=== PATIENT | female | born 1960 | race Caucasian/White ===

== ENCOUNTER 2018-05-21 08:56 | Observation (INO) | payer BC ==
[2018-05-21 09:29] LABS: ABS Basophils 0 10^3/ul (0-0.2); ABS Eosinophils 0.1 10^3/ul (0-0.6); ABS Lymphocytes 0.7 10^3/ul (1.0-4.8); ABS Monocytes 0.9 10^3/ul (0-0.8); ABS Neutrophils 16.2 10^3/ul (1.5-7.7); ABS Nucleated RBC 0 10^3/ul; Eosinophil % 0.3 % (0-6); Hematocrit 51 % (35-47); Hemoglobin 17.1 g/dl (12.0-16.0); Lymphocyte % 4.1 % (25-47); Mean Corpuscular HGB Conc 34 g/dl (31-36); Mean Corpuscular Hemoglobin 30 pg (27-31); Mean Corpuscular Volume 89 fL (80-97); Mean Platelet Volume 8.6 um3 (7.4-10.4); Nucleated Red Blood Cells % 0; Platelet Count 271 10^3/ul (150-450); Red Blood Count 5.73 10^6/ul (4.00-5.40); Red Cell Distribution Width 14 % (10.5-15); White Blood Count 17.9 10^3/ul (3.5-10.8)
[2018-05-21] MEDS ORDERED: NS 0.9% 1000 ML* 1,000 ML IV ONE ×3 (09:37→14:35)
--- OUTSIDE RECORDS SUMMARY | 2018-05-21 09:38 | XMS REPORT ---
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 Venkat Lala MD Primary Care Physician Unavailable Payers Type Date Identification Numbers Payment Provider Subscriber Commercial Effective: Policy Number: BC/BS Of MARY Ernesto Stokes 2017 [id number] Group Number: [id number] [address] [id number] PayID: [id number] [place] [address] Problems Description No Information Family History Date Family Member(s) Problem(s) Comments : (age 70 Years) Father due to Heart Disease Mother Diabetes Mellitus, II Mother Congestive Heart Failure (CHF) First Brother 58 First Brother Cirrhosis First Brother Hypertension First Sister 60 First Sister No Current Problems Second Sister 51 Second Sister Hypertension Social History Type Date Description Comments Marital Status . 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[employer] [place] Smoking Nonsmoker Allergies, Adverse Reactions, Alerts Date Description Reaction Status Severity Comments 05/09/2018 Sulfa hives active Medications Medication Date Status Form Strength Qnty SIG Indications Ordering Provider Lisinopril 05/09/ Active Tablets 40mg 30tabs 1 by I10 Venkat Cervantes 2018 mouth Dai dorsey MD day Metoprolol Tartrate / Active Tablets 100mg 1 by Unknown 0000 mouth twice a day Hydrochlorothiazide / Active Tablets 25mg 1 by Unknown 0000 mouth every day Vital Signs Date Vital Result Comment 05/09/2018 BP Systolic 130 mmHg BP Diastolic 88 mmHg Heart Rate 76 /min Body Temperature 98.3 F Respiratory Rate 16 /min Height 64.5 inches 5'4.50" Weight 172.00 lb BMI (Body Mass Index) 29.1 kg/m2 Results Description No Information Procedures Date CPT Code Description Status 08/27/2016 Mammogram Completed 08/27/2012 Colonoscopy Completed Plan of Care Future Appointment(s):11/11/2018 4:10 pm - Venkat Lala MD at [facility] Qspugw3305/09/2018 - Venkat Lala [id number] Essential (primary) hypertensionNew Medication:Lisinopril 40 mgComments:taper off the Metoprolol over several days. Mid way through this process, begin the Lisinopril in the AM along with your HCTZ.AllComments:~B_~U_Medication Management~b_~u_ Patient Understands medications she's taking? Yes No Are there Barriers to Adherence? Yes No Has the patient been asked about herbal supplements and therapies, and OTC meds? Yes No
[2018-05-21] MEDS ORDERED: Ondansetron INJ* 2 MG/ML VIAL IV ONE (09:39)
--- NOTE | 2018-05-21 09:41 | ED ---
GI/ HPI - HPI Summary HPI Summary: A 57 y/o F presenting to ED with abd pain described as cramping onset 0430. Associated sx: bloat, v/d (watery). Denies fever, CP. She had similar sx last month. She went to work here at [employer], she took her BP and HR which were elevated , so she came to ED. She has not been around anyone sick recently. She is no longer on her Metoprolol. She took her Lisinopril but vomited shortly thereafter. Pert FHx: father had sudden [place] and possible AAA. Pt is currently under stress because her mother is ill. 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 Negative: Fever, Chest Pain - Allergy/Home Medications Allergies/Adverse Reactions: Allergies Allergy/AdvReac Type Severity Reaction Status Date / Time Sulfa (Sulfonamide Allergy Anaphylatic Verified 05/21/18 09:02 Antibiotics) Shock Home Medications: Home Medications Lisinopril 25 mg PO DAILY 05/21/18 [History Confirmed 05/21/18] PMH/Surg Hx/FS Hx/Imm Hx Previously Healthy: No Cardiovascular History: Reports: Hx Hypertension Neurological History: Reports: Hx Migraine Infectious Disease History: No Infectious Disease History: Denies: Traveled Outside the [place] in Last 30 Days - Family History Known Family History: Positive: Cardiac Disease - father might have AAA - Social History Occupation: Employed Full-time Lives: With Family Alcohol Use: None Hx Substance Use: No Substance Use Type: Reports: None Hx Tobacco Use: No Smoking Status (MU): Never Smoked Tobacco Review of Systems Negative: Fever, Chills Negative: Erythema Negative: Sore Throat Negative: Chest Pain Negative: Shortness Of Breath, Cough Positive: Abdominal Pain, Vomiting, Diarrhea, Nausea, Other - pos: bloat Negative: dysuria, hematuria Negative: Myalgia, Edema Negative: Rash Neurological: Other - neg: dizziness All Other Systems Reviewed And Are Negative: Yes Physical Exam - Summary Physical Exam Summary: Constitutional: Well-developed, Well-nourished, Alert. (-) Distressed Skin: Warm, Dry HENT: Normocephalic; Atraumatic Eyes: Conjunctiva normal Neck: Musculoskeletal ROM normal neck. (-) JVD, (-) Stridor, (-) Tracheal deviation Cardio: Tachy, Heart sounds normal; Intact distal pulses; The pedal pulses are 2 + and symmetric. Radial pulses are 2+ and symmetric. (-) Murmur Pulmonary/Chest wall: Effort normal. (-) Respiratory distress, (-) Wheezes, (-) Rales Abd: Soft, (-) epigastric tenderness, (-) Distension, (-) Guarding, (-) Rebound Musculoskeletal: (-) Edema Lymph: (-) Cervical adenopathy Neuro: Alert, Oriented x3 Psych: Mood and affect Normal Triage Information Reviewed: Yes Vital Signs On Initial Exam: Initial Vitals Temp Pulse Resp BP Pulse Ox 97.3 F 143 16 103/64 97 05/21/18 09:02 05/21/18 09:02 05/21/18 09:02 05/21/18 09:02 05/21/18 09:02 Vital Signs Reviewed: Yes Diagnostics - Vital Signs Vital Signs Temp Pulse Resp BP Pulse Ox 05/21/18 09:26 135 10 174/132 96 05/21/18 09:15 141 19 179/127 97 05/21/18 09:02 97.3 F 143 16 103/64 97 - Laboratory Lab Results: Lab Results 05/21/18 Range/Units 09:19 WBC 17.9 H (3.5-10.8) 10^3/ul RBC 5.73 H (4.00-5.40) 10^6/ul Hgb 17.1 H (12.0-16.0) g/dl Hct 51 H (35-47) % MCV 89 (80-97) fL MCH 30 (27-31) pg MCHC 34 (31-36) g/dl RDW 14 (10.5-15) % Plt Count 271 (150-450) 10^3/ul MPV 8.6 (7.4-10.4) um3 Neut % (Auto) 90.4 H (38-83) % Lymph % (Auto) 4.1 L (25-47) % [place] % (Auto) 5.0 (0-7) % Eos % (Auto) 0.3 (0-6) % Baso % (Auto) 0.2 (0-2) % Absolute Neuts (auto) 16.2 H (1.5-7.7) 10^3/ul Absolute Lymphs (auto) 0.7 L (1.0-4.8) 10^3/ul Absolute Monos (auto) 0.9 H (0-0.8) 10^3/ul Absolute Eos (auto) 0.1 (0-0.6) 10^3/ul Absolute Basos (auto) 0 (0-0.2) 10^3/ul Absolute Nucleated RBC 0 10^3/ul Nucleated RBC % 0 Result Diagrams: 05/21/18 09:19 05/21/18 09:19 Lab Statement: Any lab studies that have been ordered have been reviewed, and results considered in the medical decision making process. - Radiology CXR Xray Interpretation: No Acute Changes - IMPRESSION: No evidence for acute intrathoracic dz. ED provider has reviewed this report. Radiology Interpretation Completed By: Radiologist - EKG 0914 Cardiac Rate: Tachycardia - 135bpm EKG Rhythm: Sinus Tachycardia EKG Interpretation: no stemi GIGU Course/Dx - Course Course Of Treatment: Pt is a 57 y/o F presenting with cramping abd pain onset 0430. Associated sx: bloat, v/d (watery). Denies fever, CP. She works here at [employer] [facility] [place]. She took her Lisinopril but vomited shortly thereafter. Pert FHx: father had sudden [place] and possible AAA. Pt is currently under stress because her mother is ill. CXR was negative. EKG shows tachycardia. First and second trop are negative. Third trop is 0.01. Upon re-eval, pt was continously tachy. She was given 3L, minimal output, and remained tachy. Consulted with Dr. Raymond, hospitalist. Pt will be admitted. - Diagnoses Provider Diagnoses: Gastroenteritis, Dehydration - Physician Notifications Discussed Care Of Patient With: Roque Kovacs - hospitalist Time Discussed With Above Provider: 16:06 Instructed by Provider To: Other - Recommends c. diff. testing. Discharge - Sign-Out/Discharge Documenting (check all that apply): Patient Departure - ADM - Discharge Plan Disposition: ADMITTED TO [facility] Referrals: Venkat Lala MD [Primary Care Provider] - - Attestation Statements Document Initiated by Scribe: Yes Documenting Scribe: Daniela Jessica Provider For Whom Scribe is Documenting (Include Credential): Dr. Anders Marie MD Scribe Attestation: IDaniela, scribed for Dr. Anders Marie MD on 05/21/18 at 1745.
[2018-05-21] MEDS ORDERED: Metoprolol Tartrate IV* 1 MG/ML 5 ML VIAL IV ONE (09:43)
[2018-05-21 09:49] LABS: EGFR Non-African American 73.4 (>60)
--- NOTE | 2018-05-21 09:56 | RAD ---
Indication: Epigastric pain. Diarrhea. Nausea and vomiting. Comparison: No relevant prior exams available on the [facility] PACS for comparison. Technique: Upright AP 0935 hours Report: Clear lungs and pleural spaces. Negative for pneumothorax. The heart, pulmonary vasculature, and mediastinal contours are unremarkable. Negative for subdiaphragmatic free air. RIGHT convex scoliosis at the thoracic lumbar junction partially visualized. IMPRESSION: #. No evidence for acute intrathoracic disease.
[2018-05-21] MEDS ORDERED: Ciprofloxacin 400MG IVPREMIX(* 400 MG/200 ML BAG IVPB ONE (17:06)
[2018-05-21] MEDS ORDERED: Diatrizoate Meg/Sod(CONTRAST) 30 ML ORAL.SOLN PO ONE (17:08)
[2018-05-21] MEDS ORDERED: Al Hydrox/Mg Hydrox/Simet LIQ* 30 ML UDC PO PRN (17:11)
[2018-05-21] MEDS: Ondansetron INJ* 2 MG/ML VIAL IV PRN ×2 (18:12→21:40)
[2018-05-21] MEDS ORDERED: Iohexol 300* (CONTRAST) 10 ML SDV IV ONE (19:13)
[2018-05-21] MEDS: Enoxaparin(*) 40 MG/0.4 ML SYR SUBCUT SCH (21:40)
[2018-05-21] MEDS: metroNIDAZOLE IV 500 MG/100ML* 500 MG/100 ML BAG IVPB SCH (21:53)
--- NOTE | 2018-05-21 22:38 | RAD ---
EXAM: CT Abdomen and Pelvis With Intravenous Contrast CLINICAL HISTORY: 57 years old, female; Pain; Abdominal pain; Flank; Right; Additional info: Sepsis, diarrhea ru/rlq abd pain TECHNIQUE: Axial computed tomography images of the abdomen and pelvis with intravenous contrast. All CT scans at this facility use at least one of these dose optimization techniques: automated exposure control; mA and/or kV adjustment per patient size (includes targeted exams where dose is matched to clinical indication); or iterative reconstruction. Coronal and sagittal reformatted images were created and reviewed. CONTRAST: 105 mL of OMNIPAQUE 300 administered intravenously. COMPARISON: No relevant prior studies available. FINDINGS: Lung bases: Unremarkable. No mass. No consolidation. Mediastinum: Wall of the lower esophagus appears thickened which may represent esophagitis. ABDOMEN: Liver: Unremarkable. No mass. Gallbladder and bile ducts: Unremarkable. No calcified stones or biliary dilation. Pancreas: Unremarkable. No mass. Spleen: A 5 mm hypodensity is noted in the spleen, too small to characterize but likely a tiny cyst. Adrenals: Unremarkable. No mass. Kidneys and ureters: Unremarkable. No hydronephrosis or solid mass. Stomach and bowel: The small bowel is fluid-filled with occasional air-fluid levels distally. PELVIS: Appendix: The appendix is not dilated although a small amount of fluid is present in the right lower quadrant. Bladder: The urinary bladder is decompressed but contains no calcified stones. Reproductive: Resected uterus. ABDOMEN and PELVIS: Intraperitoneal space: A small amount of free fluid is present in the pelvis. Mesenteric vessels appear congested. Bones/joints: Mild degenerative change and curvature of the spine. Soft tissues: Unremarkable. Vasculature: Unremarkable. No abdominal aortic aneurysm. Lymph nodes: Unremarkable. No enlarged lymph nodes. IMPRESSION: 1. Fluid filled small bowel loops with occasional air-fluid levels and mild mesenteric stranding. Findings could represent infectious or inflammatory enteritis. No evidence of bowel obstruction. 2. Small amount of free fluid in the pelvis. 3. Lower esophageal wall thickening, likely representing esophagitis. Neoplastic etiology much less likely but cannot be excluded. Suggest correlation with upper GI study or direct visualization.
--- NOTE | 2018-05-21 23:00 | HP ---
CC: Dr. Lala * ADMISSION HISTORY AND PHYSICAL: DATE OF ADMISSION: 05/21/18. PRIMARY CARE PROVIDER: Dr. Lala. HEALTHCARE PROXY: Her . CODE STATUS: Full. SOURCE OF INFORMATION: History obtained from interview with the patient and her and ED provider. RELIABILITY: Good. CHIEF COMPLAINT: Diarrhea, nausea, and vomiting. HISTORY OF PRESENT ILLNESS: This is a 57-year-old female with past medical history of hypertension and hiatal hernia, who had been in her usual state of health until 4:30 this morning, woke up with abdominal cramping, had 6 episodes of watery stool without mucus or blood followed by emesis while brushing her teeth. She felt as if she was improving and so she did come to work in the morning; however, she was feeling more jittery and shaky, not herself. 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 She was transferred to the ED for further evaluation. She knows that approximately 1 month ago she had a similar episode where she woke up and had several loose stools; however, that episode was associated with more vomiting, that episode resolved at home after 24 hours. She was seen by this author. She has been present in the emergency room for approximately 8 hours and her last episode of diarrhea and vomiting were at home , although she still does feel queasy. She denies any recent fevers, chills or night sweats, pain, bright red blood per rectum or mucus, changes in her home medication, sick contacts, travel or surgeries. PAST MEDICAL HISTORY: Includes hypertension, hiatal hernia. HOME MEDICATIONS: Lisinopril, unclear dose. She states she either takes 10 or 25 mg daily. ALLERGIES: SULFA. FAMILY HISTORY: Significant for mother with an IN, CKD, type 2 diabetes, lupus , rheumatoid arthritis. Father with hypertension, from an IN. SOCIAL HISTORY: No smoking. Drinks 2 alcoholic beverages per day. 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 REVIEW OF SYSTEMS: As per HPI includes nausea. Otherwise, all other systems were negative. PHYSICAL EXAMINATION GENERAL: Sitting up in bed, interactive, pleasant, in no apparent distress. VITAL SIGNS: When seen by this author, 149/105, heart rate is 126, respiratory rate is 16, T-max in the emergency room 97.3. HEENT: Oropharynx is clear. She has moist mucous membranes. Sclerae are anicteric. NECK: She has non-elevated JVD. No cervical or supraclavicular lymphadenopathy. LUNGS: Clear to auscultation. HEART: She has tachycardic heart rate without murmurs, rubs or gallops. ABDOMEN: Positive bowel sounds in all 4 quadrants. Soft. Tenderness in the right upper and right lower quadrants to deep palpation. EXTREMITIES: Warm and well perfused without clubbing, cyanosis or edema. NEUROLOGIC: She is alert and oriented x3. Her cranial nerves II through XII are intact. DIAGNOSTIC STUDIES/LAB DATA: Labs reviewed: White blood cell count is 17.9, 90% neutrophils, her hemoglobin of 17.1 with a hematocrit of 51, platelets 271. She has a lactic acid of 1.4 and 3 negative troponins. Data reviewed: Chest x-ray, impression: No evidence for acute intrathoracic disease. EKG, impression: Sinus tachycardia, ventricular rate of 135. On presentation to the emergency room, normal limit axis, normal limit intervals, good R wave progression. No ST-T wave depressions. ASSESSMENT AND PLAN: This is a 57-year-old female with minimal past medical history including hypertension, presented to the hospital with several episodes of watery, voluminous diarrhea associated with 1 episode of vomiting with continued nausea, found to be significantly tachycardic, status post 3 L fluid resuscitation. 1. Tachycardia. I suspect partially in the setting of voluminous diarrhea and nausea; however, she has received 3 L of normal saline without improvement or resolution. I am concerned that she has underlying infection given her leukocytosis with predominant left shift as well as tachycardia. I dosed her for an intraabdominal infection given that is only localizing symptom right now with diarrhea, nausea, vomiting, and right upper and lower quadrant pain. Treated with ciprofloxacin and metronidazole as well as 2 additional liters of lactated Ringer's followed by 2 additional liters of lactated Ringer's at 150 mL per hour. Proceed to check a CT of abdomen and pelvis with and without contrast with premedication with Zofran since her tolerating the p.o. Gastrografin. Check blood cultures prior to administration of antibiotics. Admit to [address] [place] [address] on telemetry to monitor success with improving heart rate. 2. Hypertension. Lisinopril 10 mg, increase as tolerated. will confirm home dose. 3. DVT prophylaxis. High risk Lovenox 40 mg subcutaneously daily. [id number]/CPS #: [id number] MTDD
[2018-05-22] MEDS: metroNIDAZOLE IV 500 MG/100ML* 500 MG/100 ML BAG IVPB SCH ×3 (02:21→19:48)
[2018-05-22 07:59] LABS: ABS Basophils 0 10^3/ul (0-0.2); ABS Eosinophils 0.1 10^3/ul (0-0.6); ABS Lymphocytes 1.3 10^3/ul (1.0-4.8); ABS Monocytes 0.8 10^3/ul (0-0.8); ABS Neutrophils 6.2 10^3/ul (1.5-7.7); ABS Nucleated RBC 0 10^3/ul; Eosinophil % 0.9 % (0-6); Hematocrit 39 % (35-47); Lymphocyte % 15.3 % (25-47); Mean Corpuscular HGB Conc 33 g/dl (31-36); Mean Corpuscular Hemoglobin 30 pg (27-31); Mean Corpuscular Volume 89 fL (80-97); Mean Platelet Volume 8.9 um3 (7.4-10.4); Nucleated Red Blood Cells % 0; Platelet Count 180 10^3/ul (150-450); Red Cell Distribution Width 13 % (10.5-15); White Blood Count 8.5 10^3/ul (3.5-10.8)
[2018-05-22 08:19] LABS: EGFR Non-African American 81.5 (>60)
[2018-05-22] MEDS: Lisinopril TAB* 10 MG PO SCH (08:34)
[2018-05-22] MEDS: Acetaminophen TAB* 325 MG PO PRN ×3 (08:38→19:57)
[2018-05-22] MEDS: Ondansetron INJ* 2 MG/ML VIAL IV PRN (14:51)
--- NOTE | 2018-05-22 17:05 | PN ---
Subjective Date of Service: 05/22/18 Interval History: Reports diarrhea resumed yesterday evening and continued through the night every hour before abating this AM again. No associated emesis and nausea has improved. Relays a 15 lb unintentional weight loss and early satiety over 6-8 months associated with occasionally having difficulty swallowing foods as if it gets stuck in her throat which she did not relay on admission yesterday. Objective Active Medications: Acetaminophen (Tylenol Tab*) 650 mg PO Q4H PRN PRN Reason: FEVER/PAIN Last Admin: 05/22/18 13:11 Dose: 650 mg Al Hydrox/Mg Hydrox/Simethicone (Maalox Plus*) 30 ml PO Q6H PRN PRN Reason: INDIGESTION Last Admin: 05/21/18 20:40 Dose: 30 ml Enoxaparin Sodium (Lovenox(*)) 40 mg SUBCUT Q24H [facility] Last Admin: 05/21/18 21:40 Dose: 40 mg Metronidazole/Sodium Chloride (Flagyl 500 Mg Ivpb*) 500 mg in 100 mls @ 100 mls /hr IVPB Q8H [facility] Last Admin: 05/22/18 10:33 Dose: 100 mls/hr Lactated Ringer's (Lactated Ringers 1000 Ml Bag*) 1,000 mls @ 0 mls/hr IV WIDE OPEN [facility] Stop: 05/22/18 18:01 Last Admin: 05/21/18 21:41 Dose: 999 mls/hr Lactated Ringer's (Lactated Ringers 1000 Ml Bag*) 1,000 mls @ 150 mls/hr IV PER RATE [facility] Stop: 05/23/18 00:39 Last Admin: 05/22/18 05:51 Dose: 150 mls/hr Lisinopril (Prinivil Tab*) 10 mg PO DAILY [facility] Last Admin: 05/22/18 08:34 Dose: 10 mg Ondansetron HCl (Zofran Inj*) 4 mg IV Q4H PRN PRN Reason: NAUSEA/VOMITING Last Admin: 05/22/18 14:51 Dose: 4 mg Vital Signs - 8 hr 05/22/18 05/22/18 11:11 14:15 Temperature 98.5 F 98.0 F Pulse Rate 83 82 Respiratory 18 16 Rate Blood Pressure 129/86 136/85 (mmHg) O2 Sat by Pulse 97 95 Oximetry Oxygen Devices in Use Now: None Appearance: NAD Eyes: No Scleral Icterus, PERRLA Ears/Nose/Mouth/Throat: NL Teeth, Lips, Gums, Clear Oropharnyx Neck: NL Appearance and Movements; NL JVP, Trachea Midline Respiratory: Symmetrical Chest Expansion and Respiratory Effort, Clear to Auscultation Cardiovascular: NL Sounds; No Murmurs; No JVD, RRR Abdominal: - - mild TTP more diffuse today worse in LLQ and RUQ compared to RUQ and RLQ yesterday Extremities: No Edema Skin: No Rash or Ulcers Neurological: Alert and Oriented x 3 Result Diagrams: 05/22/18 07:47 05/22/18 07:47 Additional Lab and Data: Lab Results 05/21/18 Range/Units 09:19 WBC 17.9 H (3.5-10.8) 10^3/ul RBC 5.73 H (4.00-5.40) 10^6/ul Hgb 17.1 H (12.0-16.0) g/dl Hct 51 H (35-47) % MCV 89 (80-97) fL MCH 30 (27-31) pg MCHC 34 (31-36) g/dl RDW 14 (10.5-15) % Plt Count 271 (150-450) 10^3/ul MPV 8.6 (7.4-10.4) um3 Neut % (Auto) 90.4 H (38-83) % Lymph % (Auto) 4.1 L (25-47) % [place] % (Auto) 5.0 (0-7) % Eos % (Auto) 0.3 (0-6) % Baso % (Auto) 0.2 (0-2) % Absolute Neuts (auto) 16.2 H (1.5-7.7) 10^3/ul Absolute Lymphs (auto) 0.7 L (1.0-4.8) 10^3/ul Absolute Monos (auto) 0.9 H (0-0.8) 10^3/ul Absolute Eos (auto) 0.1 (0-0.6) 10^3/ul Absolute Basos (auto) 0 (0-0.2) 10^3/ul Absolute Nucleated RBC 0 10^3/ul Nucleated RBC % 0 Microbiology and Other Data: Microbiology 05/22/18 01:00 Stool Gross Appearance - Final Stool C. difficile DNA Amplification - Final 027 Presumptive NEGATIVE Toxigenic C.diff NEGATIVE Assess/Plan/Problems-Billing Assessment: 57 F h/o HTN p/w nausea vomiting and diarrhea found with leukocytosis and tachycardia on admission that resolved with abx and IVF - Patient Problems (1) Diarrhea Comment: fever to 100.4 overnight, CT with mesenteric stranding Viral vs bacterial stool cultures and fecal lactoferrin pending continue flagyl and cipro advance diet (2) Esophageal abnormality Comment: In setting of 15 lb unintentional weight loss and sensation of choking on food I have asked GI to evaluate for potential EGD (3) Hypertension Comment: lisinopril (4) DVT prophylaxis Comment: lovenox
[2018-05-22] MEDS ORDERED: PROCHLORPERAZINE INJ 5 MG/ML 2 ML VIAL IV ONE (17:27)
[2018-05-22] MEDS: Enoxaparin(*) 40 MG/0.4 ML SYR SUBCUT SCH (18:37)
--- NOTE | 2018-05-22 18:46 | CONS ---
GASTROENTEROLOGY CONSULT NOTE: DATE OF CONSULT: 05/22/18 REASON FOR CONSULT: Early satiety, weight loss, dysphagia. HISTORY OF PRESENT ILLNESS: Ms. Stokes is a 57-year-old woman with a history of hypertension and hiatal hernia, who [place] [facility] [place] acute-onset abdominal cramping, nausea, vomiting, and diarrhea. Ms. Stokes was in her usual state of health until Sunday morning when she woke up and felt abdominal cramping followed by watery nonbloody diarrhea and an episode of emesis. 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 She was sent to the ER and received IV fluids. She remained tachycardic and was ultimately admitted for observation and IV fluids. A CT abdomen/pelvis was obtained, which fluid- filled small bowel with air fluid levels and mild mesenteric stranding likely representing infectious or inflammatory enteritis. Additionally, lower esophageal wall thickening was identified. On further history, Ms. Stokes reported early satiety, weight loss, and solid food dysphagia over the past few months. This abnormal imaging and subacute/chronic symptoms prompted this GI consult. Today, Ms. Stokes says that she is starting to feel a bit better. Her abdominal pain has lessened. Her stool seems to have solidified with the last bowel movement being several hours ago. She remains nauseous, although she has had no further episodes of vomiting. She does work as a nurse with direct patient care, although she denies any recent sick contacts. She mentions having a similar episode that lasted less than 24 hours about a month ago. When asked about her more chronic symptoms, Ms. Stokes says that she has noticed various GI symptoms over the past 4-5 months. Specifically, she has noticed early satiety and fullness after a few bites. She also feels that food seems to get stuck in her mid esophagus at times. This occurs with solid foods rather than liquids. The food tends to move through with liquids or taking deep breaths. She has also noted 15 to 20 pounds of unintentional weight loss in this period. She reports 2 to 3 episodes a week of acid reflux, which prompts her to take Tums. She is not on a PPI. No NSAID use. She had an EGD performed at [place] around 8 years ago, although she cannot remember why this study was performed. She recalls being told that she had a hiatal hernia. She believes her last colonoscopy was at age 52 and was normal. PAST MEDICAL HISTORY: Hypertension and hiatal hernia. HOME MEDICATIONS: Lisinopril. ALLERGIES: SULFA. FAMILY HISTORY: Mother with cardiovascular disease, kidney disease, diabetes, lupus, rheumatoid arthritis. Father with hypertension,GERD, CAD. 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 Drinks 2 alcoholic beverages a day per the H&P. No smoking history. No drug use. REVIEW OF SYSTEMS: A complete 10 point review of systems reviewed with the patient and negative except as above. PHYSICAL EXAM: Vital Signs: The patient had T-max of 100 yesterday evening, current temperature is 98; heart rate was 117, now down to 82; blood pressure 136/85; 95 % on room air. General Appearance: Lying in bed and appears quite nauseous and tired. The patient remarks that she has a migraine headache at the time of interview. HEENT: Mucous membranes are moist. Sclerae are anicteric. Lungs: Clear to auscultation bilaterally. Heart: Regular rate and rhythm without murmurs, rubs, or gallops. Abdomen: Positive bowel sounds. Soft, nondistended. Mild tenderness in the epigastrium. No rebound tenderness or guarding. Extremities: Warm and well perfused. No edema. Neurologic: A and O x3. Nonfocal exam. DIAGNOSTIC STUDIES/LAB DATA: Labs reviewed: White count was 17.9 on admission with a Hct of 51 and platelets of 271. Repeat labs this morning after fluids indicate a white count of 8.5, Hct 39, platelets 180. LFTs on admission were unremarkable. Lipase was normal. Stool studies: Stool culture is pending. C. diff is negative. Studies: CT abdomen and pelvis from 05/21/18 reviewed. Note made of fluid- filled small bowel loops with occasional air fluid levels and mild mesenteric stranding, findings representing infectious or inflammatory enteritis per the Radiology report. Also noted was lower esophageal wall thickening. 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 These gastrointestinal symptoms appear to be resolving and are suggestive of a viral gastroenteritis. The CT findings of enteritis can be explained by such an infectious self-limited process. On a separate note, Ms Kike endorses 4 to 5 months of unintentional weight loss, early satiety, and solid food dysphagia. Note was made of lower esophageal wall thickening on the CT abdomen/pelvis performed this admission. Given this presentation, I think it is appropriate to proceed with an EGD to evaluate for any structural or organic explanation for patient's symptoms and abnormal imaging findings. GERD with possible related ring and/or esophagitis could certainly explain some of patient's symptoms, although the weight loss and early satiety are not classic for an acid-driven condition. An EGD will allow us to rule out a more concerning neoplastic or infiltrative process. - Agree with supportive care with IV fluid and antiemetics for the likely infectious gastroenteritis - Await stool culture - Recommend PPI daily for now - NPO after MN. Plan for EGD tomorrow. This procedure and the associated risks and benefits was discussed with the patient and her family. Thank you for this consult. [id number]/[facility] #: [id number] CLAY
[2018-05-23] MEDS: metroNIDAZOLE IV 500 MG/100ML* 500 MG/100 ML BAG IVPB SCH ×2 (01:30→11:27)
[2018-05-23] MEDS ORDERED: Omeprazole CAP* 20 MG PO SCH (06:00)
[2018-05-23] MEDS: Ondansetron INJ* 2 MG/ML VIAL IV PRN (08:13)
[2018-05-23] MEDS: Acetaminophen TAB* 325 MG PO PRN (08:13)
[2018-05-23] MEDS: Lisinopril TAB* 10 MG PO SCH (08:13)
[2018-05-23] MEDS ORDERED: fentaNYL* 50 MCG/ML 2 ML VIAL (100 MCG VIAL) ONE (09:21)
[2018-05-23] MEDS ORDERED: Midazolam* 1 MG/ML 10 ML VIAL (10 MG) ONE (09:21)
[2018-05-23] MEDS ORDERED: Ondansetron INJ* 2 MG/ML VIAL ONE (09:35)
[2018-05-23] MEDS ORDERED: diPHENhydraMINE IV* 50 MG/ML 1 ml VIAL (BENADRYL) ONE (09:40)
[2018-05-23] MEDS ORDERED: CMC:Pantoprazole TAB (NF) 40 MG TAB PO SCH (11:00)
--- NOTE | 2018-05-23 11:07 | PN ---
Progress Note - Progress Note Date of Service: 05/23/18 Note: GI Brief EGD Note See full dictated report Findings: LA-D erosive esophagitis. Bx, mild stricture distal esophagus, suspect inflammatory. No dilation 2/2 inflammation Gastric superficial ulcerations and erosions, extensive Duodenitis w/ Erosions Rec: BID PPI x3 months Must have gastrin level before d/c NO NSAIDS Repeat EGD in 3 months Full liquids and advance diet as tolerated Ok for d/c when tolerating diet from GI NATO Iraheta DO 05/23/18 1107AM
[2018-05-23 14:08] VITALS: BP 144/92
--- NOTE | 2018-05-24 03:26 | PRO ---
DATE OF PROCEDURE: 05/23/18 - ROOM #[id number] PROCEDURE PERFORMED: Esophagogastroduodenoscopy with biopsy. INDICATION: Abnormal CT scan, weight loss and dyspepsia. MEDICATIONS GIVEN: Include 7 mg IV midazolam, 50 mcg of IV fentanyl. DESCRIPTION OF PROCEDURE: After the EGD procedure including the risks, benefits and alternatives with the risk not limited to perforation, surgery, missed lesions and/or were explained to the patient, written consent was then obtained. IV medication was given and bite block was placed between the teeth. The Olympus gastroscope was passed through the patient's mouth through the upper esophageal sphincter into the esophagus. The distal esophagus had LAD erosive esophagitis with possible slight stricture at 39. The scope was able to easily pass through this area. I did take biopsies of this area. No dilation was performed secondary to ulceration at this time and widely patent nature of the lower esophagus. The scope was passed through the lower esophageal sphincter. A small sliding hiatal hernia was noted on retroflexion. In the stomach, in the body, and antrum she had multiple extensive superficial erosions and superficial ulcerations as well. These were biopsied and also biopsy was taken for CLOtest into H. pylori. The scope advanced through a widely patent pylorus into the bulb and the C-loop. Within the bulb and C-loop, there were some duodenitis with some erosions, this was also biopsied. The scope was then withdrawn from the patient. The GE junction was at 40 cm. She tolerated the procedure well. She did have some mild tachycardia at initial insertion of the scope. That was reflux in nature and was sinus tachycardia. However, within 1 to 2 minutes, she settled back down with her heart rate without issue. She returned to the recovery room in stable condition. IMPRESSION: 1. Complete gastro-esophagoduodenoscopy with biopsies. 2. LAD erosive esophagitis. 3. Mild distal esophageal stricture. 4. Gastric superficial ulceration and erosions. 5. Duodenitis with superficial erosions. RECOMMENDATIONS: Extensive conversation prior to the procedure and she denies any NSAID use. I will re-discuss this with her after I check her for H. pylori. In addition, I will obtain the serum gastrin level. If it is todd high , we would have a concern for possible Usha-Albarran given the amount of ulceration she did have. Irregardless, she will need a twice a day proton pump inhibitor for 3 months. I will plan on doing a repeat endoscopy to reevaluate her distal esophagus to see if she would need dilation in the future and also to evaluate healing of her LAD erosive esophagitis and to biopsy that area after it is healed up and we will also confirm that her stomach superficial ulcerations have healed. In the meantime, she should avoid any and all NSAIDs with strict reflux precautions. She may have a full liquid diet today that may be advanced as tolerated. [id number]/[facility] #: [id number] MTDAlisia
--- NOTE | 2018-05-24 07:36 | DS ---
CC: Dr. Lala * DISCHARGE SUMMARY: DATE OF ADMISSION: 05/21/18. DATE OF DISCHARGE: 05/23/18. PRIMARY CARE PROVIDER: Dr. Venkat Lala. PRIMARY DIAGNOSES: 1. Gastroenteritis. 2. Esophagitis. 3. Gastric ulcers. 4. Duodenitis. SECONDARY DIAGNOSIS: Include hypertension. MEDICATIONS ON DISCHARGE: Include: 1. Lisinopril 25 mg daily. 2. Metronidazole 500 mg 3 times daily. 3. Ciprofloxacin 500 mg twice daily up to 3 additional days. 4. Omeprazole 20 mg twice daily as new medication. PERTINENT IMAGING STUDIES: CT abdomen and pelvis with contrast. Impression: Fluid filled small bowel loops with occasional air fluid levels and mild mesenteric stranding. Findings could represent infectious or inflammatory enteritis. No evidence of bowel obstruction. Small amount of free fluid at the pelvis. Lower esophageal wall thickening likely representing esophagitis. Neoplastic etiology much less likely, but cannot be excluded. PERTINENT LABORATORY DATA: White blood cell count on presentation 17.9 decreased to . Microbiology: C. diff negative. Blood cultures negative. Stool cultures positive for fecal lactoferrin. Remainder of stool culture is pending at the time of this dictation. HISTORY OF PRESENT ILLNESS AND HOSPITAL COURSE: A 57-year-old female with minimal past medical history including hypertension, presented to the hospital with copious diarrhea in the morning that resolved by the time she presented to the hospital, however, found with persistent nausea, vomiting, and tachycardia. Despite 3 L of IV fluid in the emergency room, she remained tachycardic. She was admitted to the hospital given vigorous IV fluid and started on antibiotics given her profound leukocytosis. Her diarrhea returned after admission and continued overnight after administration of Gastrografin for a CT abdomen and pelvis, was little sedated. Findings as indicated above. The patient further indicated after further discussion of esophageal findings on CT scan that she has had a sensation of food being struck in her throat and she has had a sensation of early satiety and 15 pounds weight loss over the last 6 months. GI was consulted. The patient underwent an EGD on day of discharge on . The preliminary report from the patient's EGD today was erosive esophagitis with biopsy was taken of the mid, the mild stricture at the distal esophagus, which was suspected to be inflammatory. There was no dilatation secondary to the inflammation that was present. There were gastric superficial ulcerations and erosions that were extensive, and duodenitis with erosions. Recommendation for PPI twice daily for 3 months was made and she was started on omeprazole 20 mg twice daily. A gastrin level was also recommended to be drawn prior to her discharge and for her to avoid NSAIDs. She will require repeat EGD in 3 months. The patient was continued on antibiotics at discharge given her leukocytosis on presentation as well as tachycardia unresponsive to volume resuscitation. The CAT scan did indicate possible infectious etiology, although does seem a clinical presentation more consistent with viral etiology. On the day of discharge, the patient was tolerating her food, was no longer nauseous or vomiting. Had no pain with ambulating and felt stable for discharge. Discussed advancing her diet slowly, which she fully understood. Of note, the first night of admission, the patient did have a fever to 100.4. At followup, please: 1. Follow up biopsies from EGD. 2. Follow up on gastrin level drawn before discharging. 3. Follow up on stool cultures. 4. The patient will need a repeat EGD in 3 months to evaluate for healing of erosions and ulcerations. 5. Please evaluate for continued weight loss and/or other etiologies of early satiety not resolved with aforementioned treatment. Reasons to return to the hospital include, but not limited to, recurrent or worsening symptoms, fevers, chills, night sweats, chest pain, shortness of breath, inability to obtain or tolerate medications were discussed with the patient. She acknowledged understanding. TIME SPENT: Greater than 60 minutes were spent on the discharge of this patient , greater than half was spent [id number] with the patient. [id number]/[facility] #: [id number] [facility] CENTERAlisia
== END 2018-05-23 15:00 | disposition home or self-care (01) ==
LOC: ED 08:56 → MED 17:11
PROVIDERS: ADMIT Internal Medicine; ATTEND Internal Medicine
PROC: 0DB98ZX Excision of Duodenum, Via Natural or Artificial Opening Endoscopic, Diagnostic (ICD-10-PCS; principal; 2018-05-23)
PROC: 0DB68ZX Excision of Stomach, Via Natural or Artificial Opening Endoscopic, Diagnostic (ICD-10-PCS; 2018-05-23)
PROC: 0DB58ZX Excision of Esophagus, Via Natural or Artificial Opening Endoscopic, Diagnostic (ICD-10-PCS; 2018-05-23)
DX: K52.9 Noninfective gastroenteritis and colitis, unspecified (principal); K20.9 Esophagitis, unspecified; K25.9 Gastric ulcer, unspecified as acute or chronic, without hemorrhage or perforation; K29.80 Duodenitis without bleeding; R19.7 Diarrhea, unspecified; R00.0 Tachycardia, unspecified; I10 Essential (primary) hypertension; Z79.899 Other long term (current) drug therapy; Z82.49 Family history of ischemic heart disease and other diseases of the circulatory system; Z88.2 Allergy status to sulfonamides; I45.81 Long QT syndrome
CPT/HCPCS: 36415; 71045; 74177; 80048; 80053; 82941; 83605; 83630; 83690; 84439; 84443; 84484; 85025; 85652; 86140; 87040; 87045; 87046; 87077; 87493; 88305; 93005; 96365; 96366; 96367; 96372; 96375; 99156; 99157; 99284; A9270-GY; G0378; J0744; J0780; J1200; J1650; J2250; J2405; J3010; J3490; Q9967

== ENCOUNTER 2018-05-28 10:42 | Emergency (ER) | payer BC ==
--- NOTE | 2018-05-28 11:30 | ED ---
Complex/Multi-Sys Presentation - HPI Summary HPI Summary: This patient is a 57 year old F presenting to [facility] with a chief complaint of ABD cramping and watery stools that began yesterday. Pt states she returned to work yesterday and since has been experiencing sx that she felt at the end of last month. Pt was admitted due to dehydration/sepsis last month and was released from CDU 5 days ago. Pt states she had multiple loose stools and has only had a hysterectomy as far as ABD surgery goes. The patient rates the pain 0 /10 in severity. Patient reports KINSEY, elevated BP, and generalized weakness. Patient denies blood in the stool. Pt vomited today while brushing her teeth. Pt states she has been getting full easily recently. She was d/c with abx and finished it on 05-26-18. Pt states her main concern today was her elevated BP of 150/100 ,she is concerned that this is causing her headache. - History Of Current Complaint Chief Complaint: EDGeneral Time Seen by Provider: 05/28/18 11:09 Hx Obtained From: Patient Onset/Duration: Still Present Timing: Constant Severity Currently: Moderate Severity Initially: Moderate Location: Negative Associated Signs And Symptoms: Positive: Other - elevated BP and KINSEY - Allergies/Home Medications Allergies/Adverse Reactions: Allergies Allergy/AdvReac Type Severity Reaction Status Date / Time Sulfa (Sulfonamide Allergy Anaphylatic Verified 05/28/18 10:54 Antibiotics) Shock PMH/Surg Hx/FS Hx/Imm Hx Cardiovascular History: Reports: Hx Hypertension Respiratory History: Denies: Hx Chronic Obstructive Pulmonary Disease (COPD) Sensory History: Denies: Hx Contacts or Glasses, Hx Hearing Aid Opthamlomology History: Denies: Hx Contacts or Glasses Neurological History: Reports: Hx Headaches, Hx Migraine - Immunization History Immunizations Up to Date: Yes Infectious Disease History: No Infectious Disease History: Denies: Traveled Outside the [place] in Last 30 Days - Family History Known Family History: Positive: Cardiac Disease - father might have AAA - Social History Occupation: Employed Full-time Lives: With Family Alcohol Use: Daily Hx Substance Use: No Substance Use Type: Reports: None Hx Tobacco Use: No Smoking Status (MU): Never Smoked Tobacco Review of Systems Positive: Other - elevated BP Gastrointestinal: Negative - blood in the stool Positive: Vomiting, Other - loose stool Positive: Headache, Weakness All Other Systems Reviewed And Are Negative: Yes Physical Exam - Summary Physical Exam Summary: Appearance: Well-appearing, Well-nourished, lying in bed comfortably Skin: Warm, dry, no obvious rash Eyes: sclera anicteric, no conjunctival pallor ENT: mucous membranes moist, pharynx appears normal Neck: Supple, nontender Respiratory: Clear to auscultation, no signs of respiratory distress Cardiovascular: Normal S1, S2. No murmurs. Normal distal pulses in tibial and radial bilaterally. Abdomen: Soft, nontender, normal active bowel sounds present Musculoskeletal: Normal, Strength/ROM Intact Neurological: A&Ox3, awake and alert, mentation is normal, speech is fluent and appropriate Psychiatric: affect is normal, does not appear anxious or depressed Triage Information Reviewed: Yes Vital Signs On Initial Exam: Initial Vitals Temp Pulse Resp BP Pulse Ox 97.5 F 85 16 181/108 97 05/28/18 10:49 05/28/18 10:49 05/28/18 10:49 05/28/18 10:49 05/28/18 10:49 Vital Signs Reviewed: Yes Diagnostics - Vital Signs Vital Signs Temp Pulse Resp BP Pulse Ox 05/28/18 10:49 97.5 F 85 16 181/108 97 - Laboratory Result Diagrams: 05/28/18 11:37 05/28/18 11:37 Lab Statement: Any lab studies that have been ordered have been reviewed, and results considered in the medical decision making process. Complex Multi-Symp Course/Dx Assessment/Plan: This patient is a 57 year old F presenting to [facility] with a chief complaint of ABD cramping and watery stools that began yesterday. Pt states she returned to work yesterday and since has been experiencing sx that she felt at the end of last month. Pt was admitted due to dehydration/sepsis last month and was released from CDU 5 days ago. Pt states she had multiple loose stools and has only had a hysterectomy as far as ABD surgery goes. The patient rates the pain 0/10 in severity. Patient reports KINSEY, elevated BP, and generalized weakness. Patient denies blood in the stool. Pt vomited today while brushing her teeth. Pt states she has been getting full easily recently. She was d/c with abx and finished it on 05-26-18. Pt states her main concern today was her elevated BP of 150/100 ,she is concerned that this is causing her headache. I suspect the patient is still recovering from the intestinal infection she had last week. Fortunately the blood work and exam do not show any significant signs of dehydration. Patient will be discharged and f/u with pcp. The patient is agreeable with this plan. - Diagnoses Provider Diagnoses: Gastroenteritis Discharge - Sign-Out/Discharge Documenting (check all that apply): Patient Departure - Discharge Plan Condition: Good Disposition: HOME Patient Education Materials: Gastroenteritis (ED) Referrals: Venkat Lala MD [Primary Care Provider] - Additional Instructions: I suspect you are still recovering from the intestinal infection you had last week, making you still feel weak and out of sorts. Fortunately your blood work and exam do not show any significant signs of dehydration. - Billing Disposition and Condition Condition: GOOD Disposition: Home - Attestation Statements Document Initiated by Stephanie: Yes Documenting Scribe: Mk Mueller Provider For Whom Nagie is Documenting (Include Credential): Ernesto Gillespie MD Scribe Attestation: IMk , scribed for Ernesto Gillespie MD on 05/29/18 at 1022. Scribe Documentation Reviewed: Yes Provider Attestation: The documentation as recorded by the Mk landaverde accurately reflects the service I personally performed and the decisions made by me, Ernesto Gillespie MD
[2018-05-28 12:07] LABS: ABS Basophils 0.1 10^3/ul (0-0.2); ABS Eosinophils 0.1 10^3/ul (0-0.6); ABS Lymphocytes 1.4 10^3/ul (1.0-4.8); ABS Monocytes 0.6 10^3/ul (0-0.8); ABS Neutrophils 4.7 10^3/ul (1.5-7.7); ABS Nucleated RBC 0 10^3/ul; Eosinophil % 1.9 % (0-6); Hematocrit 42 % (35-47); Hemoglobin 13.8 g/dl (12.0-16.0); Mean Corpuscular HGB Conc 33 g/dl (31-36); Mean Corpuscular Hemoglobin 29 pg (27-31); Mean Corpuscular Volume 89 fL (80-97); Mean Platelet Volume 8.3 um3 (7.4-10.4); Nucleated Red Blood Cells % 0.1; Platelet Count 311 10^3/ul (150-450); Red Blood Count 4.78 10^6/ul (4.00-5.40); Red Cell Distribution Width 13 % (10.5-15); White Blood Count 6.9 10^3/ul (3.5-10.8)
[2018-05-28 12:27] LABS: EGFR Non-African American 84.1 (>60)
[2018-05-28 13:49] VITALS: BP 141/89
== END 2018-05-28 13:48 | disposition home or self-care (01) ==
LOC: ED 10:42
DX: K52.9 Noninfective gastroenteritis and colitis, unspecified (principal); R51 Headache; I10 Essential (primary) hypertension
CPT/HCPCS: 36415; 80053; 85025; 99282

== ENCOUNTER 2018-12-09 08:32 | Day surgery (SDC) | payer BC ==
[~2018-12-09 08:32] MED LIST: Buffered Lidocaine 1% SYRIN* 1 ML/SYRINGE INTRADERM ONE; Dexamethasone IV* 4 MG/ML 1 ML (4 MG) IV SLOW PU ONE; Famotidine IV* 10 MG/ML 2 ML (20 mg) IV ONE; Lactated Ringers 1000 ML Bag* 1,000 ML IV SCH
[2018-12-09] MEDS ORDERED: ceFAZolin 2 GM in NS PREMIX(*) 2 GM/100 ML BAG IVPB ONE (09:11)
[2018-12-09] MEDS ORDERED: Famotidine IV* 10 MG/ML 2 ML (20 mg) ONE (09:11)
[2018-12-09] MEDS ORDERED: Dexamethasone IV* 4 MG/ML 1 ML (4 MG) ONE (09:11)
[2018-12-09] MEDS ORDERED: Buffered Lidocaine 1% SYRIN* 1 ML/SYRINGE INTRADERM ONE (09:11)
[2018-12-09] MEDS ORDERED: Scopolamine 1.5 mg* PATCH ONE (09:36)
[2018-12-09] MEDS ORDERED: Bupivacaine 0.25% SDV PF* 10 ML VIAL INJ ONE (09:58)
[2018-12-09] MEDS ORDERED: fentaNYL* 50 MCG/ML 2 ML VIAL (100 MCG VIAL) ONE ×3 (10:42→14:43)
[2018-12-09] MEDS ORDERED: Midazolam* 1 MG/ML 2 ML VIAL (2 MG) ONE (10:42)
[2018-12-09] MEDS ORDERED: Ondansetron INJ* 2 MG/ML VIAL ONE (11:34)
[2018-12-09] MEDS ORDERED: Lidocaine 2% PF * 5 ML VIAL ONE (11:34)
[2018-12-09] MEDS ORDERED: Propofol* 10 MG/ML 20 ML BTL ONE (11:34)
[2018-12-09] MEDS ORDERED: Ketorolac INJ* 30 MG/ML 1 ML VIAL ONE (11:34)
[2018-12-09] MEDS ORDERED: DiMENhydriNATE IV* 50 MG/ML VIAL IV PUSH PRN (13:58)
[2018-12-09] MEDS ORDERED: Naloxone* 0.4 MG/ML 1 ML VIAL IV PRN (13:58)
[2018-12-09] MEDS ORDERED: DiMENhydriNATE IV* 50 MG/ML VIAL ONE (14:19)
[2018-12-09] MEDS: fentaNYL* 50 MCG/ML 2 ML VIAL (100 MCG VIAL) IV PRN ×2 (14:44→14:50)
[2018-12-09] MEDS ORDERED: HYDROcodone/ACETAMIN 5-325 MG* 1 TAB ONE (14:52)
[2018-12-09 15:25] VITALS: BP 126/86
--- NOTE | 2018-12-10 00:27 | OP ---
DATE OF OPERATION: 12/09/18 - [facility] DATE OF : 64 SURGEON: Roque Mchugh MD CLIENT SERVICES ASSISTANT: CRISPIN Ayers. An assistant guest services manager was needed for the entirety of the procedure to aid in positioning of the arm and retraction. ANESTHESIOLOGIST: Dr. Mata. ANESTHESIA: General. PRE-OP DIAGNOSES: 1. Right end-stage scaphotrapeziotrapezoid joint arthritis. 2. 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 3. 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 POST-OP DIAGNOSES: 1. Right end-stage scaphotrapeziotrapezoid joint arthritis. 2. 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 3. 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 OPERATIVE PROCEDURE: 1. Right thumb carpometacarpal arthroplasty with trapeziectomy. 2. Right distally based split flexor carpi radialis tendon transfer for thumb suspension and tendon interposition. 3. Right partial trapeziectomy. 4. 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 ESTIMATED BLOOD LOSS: 2 mL. COMPLICATIONS: None. FINDINGS: See above and below. INDICATIONS: Tiff has severe STT joint arthritis with some stage 2 basal joint arthritis as well. She has hyperextension laxity. She understands the risks and benefits of the procedure. She is looking to get relief of her pain. 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 DESCRIPTION OF PROCEDURE: Tiff was seen in the preoperative holding area. The correct side, site, and procedure were identified. We came back to the operating room where the arm was prepped and draped in the usual fashion and a time-out was performed. The arm was exsanguinated with the Esmarch and the tourniquet was inflated to 250 mmHg. I made a 2 to 3 cm longitudinal incision over the dorsoradial thumb base and over the trapezium. Dissection was carried down longitudinally to preserve the radial sensory nerves. The radial artery was mobilized. There was one larger branch that was tied off. Once the radial artery was retracted out of the way, I made a longitudinal capsulotomy and raised subperiosteal and capsular flaps to expose the entirety of the dorsum of the trapezium including the carpometacarpal joint, the scapho-trapezial joint and the trapeziotrapezoid joint. Once I released the soft tissue, I went ahead and excised the trapezium in its entirety with the rongeur. There was full thickness cartilage loss over the entirety of the distal pole of the scaphoid. She also had abundant synovitis in that ST-T joint as well. There were some areas of full thickness cartilage loss on the carpometacarpal joint as well. I then turned my attention to the scaphotrapezoid joint. I used the osteotomes to excise a 3-mm way for a proximal trapezoid. This came out uneventfully and provided very nice gapping between the distal pole of the scaphoid and the trapezoid. With the trapeziectomy performed, I then made a bone tunnel from the dorsoradial thumb metacarpal base exiting out the volar ulnar articular surface near the base of the second metacarpal. This was done utilizing sequentially larger drill bits. I then made a 1-cm transverse incision in the distal forearm just proximal to the wrist flexion crease. The FCR tendon sheath was opened, this was delivered up and out of the wound and then split longitudinally with the 15 blade and then a 26-gauge wire was passed in the split. I then made a couple of more 1- cm incisions at intervals proximally. The entirety of the tendon sheath was released under the skin and then the 26-gauge wire was pulled into the most proximal wound with the Jenniffer clamp releasing half of the tendon at the musculotendinous junction. The free end of the tendon was then shuttled down into the thumb base wound using two 26-gauge wires. The tendon split was taken all the way down to the base of the second metacarpal. The free end of the tendon was passed through the bone tunnel, back around the intact limb of the FCR tendon. Appropriate tension was set as the tendon transfer was secured with 3 [id number] 3-0 Ethibond sutures, the first sewing all 3 limbs of the tendon transfer together and the last 2 sewing intact limb to intact limb. I then took a piece of AlloDerm graft and I folded over on itself 3 times making a rectangular piece. The periphery was secured with some 3-0 Ethibond suture and I placed 1 central stitch to secure all 3 layers together. I then put traction on my index finger and I placed that graft as an interposition at the site of the partial trapeziectomy. I then placed additional graft as an interposition between the distal pole of the scaphoid and the thumb metacarpal base. At this point, everything was looking good, so we irrigated out the wound. The capsule was closed with 4-0 Vicryl suture, skin was closed with 4-0 nylon suture. Last, we turned our attention to the MCP joint where I made a V-shaped incision over the MCP joint. Dissection was carried down and both digital nerves were identified and retracted out of the way. I incised the A1 naun longitudinally. The tendon was retracted ulnarly. I then raised a distally based U-flap of the volar plate. Once I had this completely mobilized, I placed 2 Mini Mitek suture anchors in the palmar aspect of the metacarpal neck just proximal to the articular surface. The 2-0 Ethibond suture was whipstitched up into the volar plate. I then tied off both sutures when I was done and the MCP joint was held in 30 degrees of flexion and I could extend it no further. I was very pleased with this, so we irrigated out the wound. The skin was closed with 4-0 nylon suture. All the wounds were infiltrated with 0.25% Marcaine. Wounds were dressed with Xeroform, 4x4, sterile Webril and then a well padded thumb spica splint out to the tip of the thumb was applied. Tourniquet was deflated and she was taken to the recovery room in stable condition. [id number]/[facility] #: [id number] CLAY
== END 2018-12-09 15:51 | disposition home or self-care (01) ==
LOC: OR 08:32
PROVIDERS: ATTEND Orthopaedic Surgery Hand Surgery
DX: M19.031 Primary osteoarthritis, right wrist (principal); M24.241 Disorder of ligament, right hand; I10 Essential (primary) hypertension; K21.9 Gastro-esophageal reflux disease without esophagitis
CPT/HCPCS: 88304; 88311; A9270-GY; C1713; J0690; J1100; J1240; J1885; J2250; J2405; J2704; J3010; J3490; Q4128

== ENCOUNTER 2019-03-27 09:42 | Day surgery (SDC) | payer BC ==
[~2019-03-27 09:42] MED LIST changes: +Acetaminophen TAB* 325 MG PO ONE; -Dexamethasone IV* 4 MG/ML 1 ML (4 MG) IV SLOW PU ONE; +Gabapentin CAP(*) 300 MG PO ONE
[2019-03-27] MEDS ORDERED: ceFAZolin 2 GM in NS PREMIX(*) 2 GM/100 ML BAG IVPB ONE (09:50)
[2019-03-27] MEDS ORDERED: Famotidine IV* 10 MG/ML 2 ML (20 mg) ONE ×2 (10:09→11:00)
[2019-03-27] MEDS ORDERED: Gabapentin CAP(*) 300 MG ONE (10:09)
[2019-03-27] MEDS ORDERED: Scopolamine 1.5 mg* PATCH ONE (10:09)
[2019-03-27] MEDS ORDERED: Acetaminophen TAB* 325 MG ONE (10:09)
[2019-03-27] MEDS ORDERED: fentaNYL* 50 MCG/ML 2 ML VIAL (100 MCG VIAL) ONE (10:39)
[2019-03-27] MEDS ORDERED: Midazolam* 1 MG/ML 2 ML VIAL (2 MG) ONE (10:39)
[2019-03-27] MEDS ORDERED: Bupivacaine 0.25% SDV* 30 ML ONE (10:55)
[2019-03-27] MEDS ORDERED: Scopolamine 1.5 mg* PATCH TRANSDERM SCH (11:00)
[2019-03-27] MEDS ORDERED: Scopolamine PATCH Remove* 1 NOTE MISC PATCH OFF SCH (11:00)
[2019-03-27] MEDS ORDERED: Dexamethasone IV* 4 MG/ML 1 ML (4 MG) ONE (11:21)
[2019-03-27] MEDS ORDERED: DiMENhydriNATE IV* 50 MG/ML VIAL IV PUSH PRN (11:33)
[2019-03-27] MEDS ORDERED: HYDROcodone/ACETAMIN 5-325 MG* 1 TAB PO PRN (11:33)
[2019-03-27] MEDS ORDERED: diPHENhydraMINE IV* 50 MG/ML 1 ml VIAL (BENADRYL) IV PRN (11:33)
[2019-03-27] MEDS ORDERED: Ondansetron INJ* 2 MG/ML VIAL IV PRN (11:33)
[2019-03-27] MEDS ORDERED: Naloxone* 0.4 MG/ML 1 ML VIAL IV PRN (11:33)
[2019-03-27] MEDS ORDERED: DiMENhydriNATE IV* 50 MG/ML VIAL ONE (12:27)
[2019-03-27] MEDS ORDERED: Ondansetron INJ* 2 MG/ML VIAL ONE (12:48)
[2019-03-27] MEDS ORDERED: PROCHLORPERAZINE INJ 5 MG/ML 2 ML VIAL ONE (13:12)
[2019-03-27] MEDS ORDERED: PROCHLORPERAZINE INJ 5 MG/ML 2 ML VIAL IV PRN (13:13)
[2019-03-27 14:02] VITALS: BP 137/80
--- NOTE | 2019-03-27 14:29 | OP ---
DATE OF OPERATION: 03/27/19 - [facility] DATE OF : 64 SURGEON: Roque Mchugh MD. CLINICAL FIELD SPECIALIST: CRISPIN Pantoja. ANESTHESIOLOGIST: Dr. Monahan. ANESTHESIA: Local with MAC. PRE-OP DIAGNOSIS: Right thumb flexor tendon adhesions limiting motion. POST-OP DIAGNOSIS: Right thumb flexor tendon adhesions limiting motion. OPERATIVE PROCEDURE: Right thumb flexor tendon tenolysis in the finger and palm. INDICATIONS: Tiff had a while back, I think about 4 months ago, MCP joint capsulodesis together with her basal joint arthroplasty. It has healed up great ; however, she got adhesions near the A1 naun area and has limited IP joint flexion. We have been doing extensive physical therapy; it has loosened up a bit, but still has lost quite a bit of motion at the IP joint. She wants to see if we can get it back. She understands the risk of tendon rupture and nerve injury. ESTIMATED BLOOD LOSS: 2 mL. COMPLICATIONS: None. FINDINGS: See above and below. DESCRIPTION OF PROCEDURE: Tiff was seen in the preoperative holding area. The correct side, site, and procedure were identified. We came back to the operating room, where the arm was prepped and draped in the usual fashion. A time-out was performed. I numbed up the area with 0.25% plain Marcaine. The arm was exsanguinated with the Esmarch and the forearm tourniquet was inflated to 200 mmHg. I went ahead and reopened her prior V-shaped incision over the palmar aspect of the MCP joint. The ulnar based flap was elevated; it took some time going very slowly to raise the flap and separate the scar tissue from the digital nerves. Both the radial and ulnar digital nerves were dissected free and protected throughout the case. I sewed back the flap with some nylon suture. I then performed a tenolysis. There was a lot of scar tissue that adhered between the tendon sheath area that is scarred back in and the flexor tendon right over the MCP joint and down into the thumb. I used a [place] blade and the tenotomy scissors to release all the tendon adhesions proximally. I placed a Viraj retractor to protect the digital nerves and continue the tenolysis down into the palm where the tendon bisects the FPB muscle. At this point, everything was looking very good. She was awake enough now that I had her flex and extend the thumb multiple times. She had full motion at the IP joint. Everything was looking very good. I debrided some of the scar tissue away and then the wound was irrigated out, and the skin was closed with 4-0 nylon suture. Very light soft dressing was applied. She was taken to the recovery room in stable condition. [id number]/[facility] #: [id number] CLAY
== END 2019-03-27 13:50 | disposition home or self-care (01) ==
LOC: OREAST 09:42
PROVIDERS: ATTEND Orthopaedic Surgery Hand Surgery
DX: M24.641 Ankylosis, right hand (principal); Z98.890 Other specified postprocedural states; I10 Essential (primary) hypertension; K21.9 Gastro-esophageal reflux disease without esophagitis; M19.90 Unspecified osteoarthritis, unspecified site
CPT/HCPCS: A9270-GY; J0690; J0780; J1100; J1240; J2250; J2405; J3010; J3490